=== PATIENT | male | born 1980 | race Caucasian/White ===

== ENCOUNTER → 2018-04-23 | Day surgery (SDC) | payer OTHER ==
[2018-04-23 12:43] VITALS: BP 125/87; TEMP 98.4
[2018-04-23 18:18] LABS: HBCM Index 0.06 S/CO (0-0.79); HBSAg Index 0.25 S/CO (0-0.99); HIV (1/2) Antibody/Antigen Non-Reactive (NonReactive); HIV 1/2 INDEX 0.07 S/CO (<1.00); Hep A IgM AB Non-Reactive (NonReactive); Hep A IgM S/CO 0.11 S/CO (0-0.79); Hep B Surf Ag Non-Reactive S/CO (NonReactive); Hep C IgG Ab Non-Reactive (NonReactive); Hep C Index 0.18 S/CO (0-0.79); Hepatitis B Core IGM Abs Non-Reactive (NonReactive)
== END ==
LOC: BUR/OP 12:03
PROVIDERS: ATTEND Nurse Practitioner
DX: Z11.59 Encounter for screening for other viral diseases (principal)
CPT/HCPCS: 36415; 80074; 87389

== ENCOUNTER 2020-02-03 19:45 | Emergency (ER) | payer OTHER, SELFPAY ==
[2020-02-03] MEDS ORDERED: Lorazepam 2 MG/ML VIAL ONE (20:35)
[2020-02-03] MEDS ORDERED: Aspirin Chewable 81 MG TAB ONE (20:36)
[2020-02-03] MEDS ORDERED: Ondansetron PF 4 MG/2 ML Vial ONE (20:36)
[2020-02-03] MEDS ORDERED: Lidocaine Viscous Sol 2% 15 ml UD Cup ONE (20:36)
[2020-02-03] MEDS ORDERED: Metoprolol Tartrate 5 MG/5 ML VIAL ONE ×3 (20:36→21:33)
[2020-02-03 20:50] LABS: Acetaminophen Less than 6.0 mcg/mL (10.0-30.0); Alcohol 12 mg/dL (Less than 10); Lipase 82 U/L (8-78); Salicylate Less than 8.0 mg/dL (15.0-30.0)
[2020-02-03 20:52] LABS: ALT (SGPT) 156 U/L (8-55); AST (SGOT) 226 U/L (5-34); Albumin 4.3 g/dL (3.5-5.0); Alkaline Phosphatase 126 U/L (40-110); Anion Gap 21 mmol/L (10-20); BUN (Urea Nitrogen) 6 mg/dL (8.9-20.6); Bilirubin, Total 1.3 mg/dL (0.2-1.2); Calc. Creatinine Clearance 0 mL/min (70-130); Calcium 9.7 mg/dL (7.8-10.44); Carbon Dioxide 22 mmol/L (22-29); Chloride 102 mmol/L (98-107); Estimated GFR-MDRD Greater than 90; Globulin 3.7 g/dL (2.4-3.5); Glucose 145 mg/dL (70-105); Potassium 3.7 mmol/L (3.5-5.1); Sodium 141 mmol/L (136-145)
[2020-02-03 21:12] LABS: Hemoglobin 14.5 g/dL (14.0-18.0); Mean Corpuscular HGB CONC 30.4 g/dL (32.0-36.0); Mean Corpuscular Hemoglobin 28.8 pg (27.0-31.0); Mean Corpuscular Volume 94.8 fL (78.0-98.0); Platelet Count 83 thou/uL (130-400); RBC Distribution Width 19.3 % (11.5-14.5); Red Blood Cell (RBC) Count 5.02 mill/uL (4.70-6.10); White Blood Cell (WBC) Count 6.6 thou/uL (4.8-10.8)
[2020-02-03 21:13] LABS: Manual Diff?? YES; Mean Platelet Volume 7.8 fL (7.4-10.4)
[2020-02-03 21:14] LABS: Anisocytosis SLIGHT = 6-15 cells (100X) (0-5/hpf); Band 1 % (5-11); Eosinophils 0 % (0-10); Lymphocytes 13 % (21-51); MDiff Complete? YES; Monocytes 14 % (0-10); Neutrophil 71 % (42-75)
[2020-02-03 21:15] LABS: Platelet Morphology Comment Appears Decreased
[2020-02-03 21:28] LABS: Bilirubin Small (Negative); Blood, Urine Trace (Negative); Clarity Slightly Cloudy (Clear); Glucose, Urine (Dipstick) Negative (Negative); Ketone, Urine 15 mg/dL (Negative); Leukocyte Negative (Negative); Nitrite Negative (Negative); Protein, Urine (Dipstick) > or equal to 300 mg/dL (Neg-Trace); Specific Gravity, Urine 1.025 (1.005-1.030)
[2020-02-03 21:30] LABS: Bacteria/HPF Rare-Few HPF (None Seen); Squamous Epithelial 0-3 HPF (0-3); WBC/HPF 0-3 HPF (0-3)
[2020-02-03 21:31] LABS: Mucous/LPF 3+ LPF (<2+)
[2020-02-03 21:35] LABS: Amphetamine Not Detected (NotDetected); Benzodiazepine Screen Not Detected (NotDetected); Cocaine Metabolite Screen Not Detected (NotDetected); Methamphetamine Not Detected (NotDetected); Opiate Screen Detected (NotDetected); Phencyclidine (PCP) Not Detected (NotDetected); THC/Cannabinoid Screen Not Detected (NotDetected); Tricyclic Screen Not Detected (NotDetected)
[2020-02-03 21:36] LABS: Barbiturates Screen Not Detected (NotDetected); Medtox Control Line Valid? VALID (VALID); Methadone Not Detected (NotDetected); Oxycodone Screen Not Detected (NotDetected)
--- NOTE | 2020-02-04 06:43 | RAD ---
PORTABLE CHEST: Date: 02/03/2020 An AP portable film at 2024 hours is compared with the 01/19/2015 study. The heart is normal in size and the lungs are clear. No infiltrate or effusion seen. There is no pulm onary edema or congestion. The mediastinum appears unremarkable. IMPRESSION: No acute thoracic findings. POS: HOME
== END 2020-02-03 22:38 | disposition short-term general hospital (02) ==
LOC: BURERS 19:45
DX: F10.239 Alcohol dependence with withdrawal, unspecified (principal); K70.10 Alcoholic hepatitis without ascites; K85.90 Acute pancreatitis without necrosis or infection, unspecified; R07.9 Chest pain, unspecified; K21.9 Gastro-esophageal reflux disease without esophagitis; I10 Essential (primary) hypertension; Z79.899 Other long term (current) drug therapy; Y90.0 Blood alcohol level of less than 20 mg/100 ml
CPT/HCPCS: 71045; 80053; 80306; 80307; 81003; 81015; 83690; 84484; 85025; 93005; 94760; 96374; 96375; J2060; J2405

== ENCOUNTER 2021-12-26 10:18 | Outpatient (CLI) | payer OTHER ==
[2021-12-26 10:41] LABS: %Eosinophils 2.9 % (0.0-10.0); %Lymphocytes 34.1 % (21.0-51.0); %Monocytes 7.4 % (0.0-10.0); %Neutrophils 54.7 % (42.0-75.0); Hemoglobin 15.7 g/dL (14.0-18.0); Mean Corpuscular Hemoglobin 28.3 pg (27.0-31.0); Mean Corpuscular Volume 88.2 fL (78.0-98.0); Platelet Count 247 thou/uL (130-400); RBC Distribution Width 13.5 % (11.5-14.5); Red Blood Cell (RBC) Count 5.54 mill/uL (4.70-6.10); White Blood Cell (WBC) Count 8.3 thou/uL (4.8-10.8)
[2021-12-26 10:42] LABS: #Basophils 0.1 thou/uL (0.0-0.2); #Eosinphils 0.2 thou/uL (0.0-0.7); #Lymphocytes 2.9 thou/uL (1.20-3.40); #Monocytes 0.6 thou/uL (0.11-0.59); #Neutrophils 4.6 thou/uL (1.40-6.50); %Basophils 0.9 % (0.0-1.0)
[2021-12-26 11:05] LABS: Sodium 141 mmol/L (136-145)
[2021-12-26 11:06] LABS: Anion Gap 15 mmol/L (10-20); BUN (Urea Nitrogen) 21 mg/dL (8.9-20.6); Bilirubin, Total 0.4 mg/dL (0.2-1.2); Calc. Creatinine Clearance 0 mL/min (70-130); Carbon Dioxide 23 mmol/L (22-29); Chloride 107 mmol/L (98-107); Glucose 114 mg/dL (70-105); Potassium 4.4 mmol/L (3.5-5.1)
[2021-12-26 11:07] LABS: ALT (SGPT) 34 U/L (8-55); AST (SGOT) 22 U/L (5-34); Albumin 4.1 g/dL (3.5-5.0); Alkaline Phosphatase 81 U/L (40-110); Globulin 3.4 g/dL (2.4-3.5); Protein, Total 7.5 g/dL (6.0-8.3)
[2021-12-28 13:57] LABS: ANA Symphony (Quantitative) 0.2 Ratio (< 0.7 Negative)
[2021-12-28 13:58] LABS: ANA Symphony (Qualitative) Negative (Negative); dsDNA IgG Antibody 0.9 IU/mL (<10 Negative)
== END 2021-12-26 10:19 | disposition home or self-care (01) ==
LOC: BURLAB 10:18
PROVIDERS: ATTEND Nurse Practitioner
DX: I10 Essential (primary) hypertension (principal); K21.00 Gastro-esophageal reflux disease with esophagitis, without bleeding; H20.9 Unspecified iridocyclitis
CPT/HCPCS: 36415; 80053; 84443; 85025; 85652; 86038; 86225